=== PATIENT | male | born 1960 | race Caucasian/White ===

== ENCOUNTER 2025-03-03 08:07 | Day surgery (SDC) | payer MEDICARE, BC ==
[~2025-03-03] VITALS: Ht 188 cm; Wt 100.8 kg
[2025-03-03] VITALS (20 sets, daily range): BP systolic 109–157; BP diastolic 67–92
--- NOTE | 2025-03-03 08:43 | NUR ---
Ambulatory in Day Surgery. History, Chart, Medications and Allergies reviewed before start of procedure. Lungs clear T/O to Auscultation. Patient confirms NPO status and agrees with scheduled surgery. Pre-Op teaching done. Pt verbalizes understanding. Patient States Post-Procedure ride home has been arranged.
--- NOTE | 2025-03-03 08:47 | NUR ---
03/03/25 0847 Abigail Alston CONFIRMED AND REVIEWED H&P, MEDCICATIONS, ALLERGIES, MEDICAL HISTORY, RESPIRATORY HISTORY, VITAL SIGNS, 3-LEAD EKG, CONSENTS, AND PHYSICIAN ORDERS. PATIENT CONFIRMS NPO STATUS AND AGREES WITH SCHEDULED PROCEDURE. MONITOR INTACT WITH CONTINUOUS PULSE OXIMETRY, CAPNOGRAPHY, 3-LEAD EKG, INTERMITTENT BP. SUPPLEMENTAL O2 TO BE TITRATED THROUGHOUT PROCEDURE TO MAINTAIN O2 SATURATION ABOVE 90%. PATIENT DETERMINED TO BE ASA APPROPRIATE FOR PROPOFOL SEDATION PRIOR TO START OF PROCEDURE BY DR. LIGHT
--- NOTE | 2025-03-03 09:58 | NUR ---
Discharge instructions reviewed with patient. Patient verbalizes understanding. Copy given to patient to take home. Discharged via wheelchair to private car for ride home.
--- NOTE | 2025-03-03 09:59 | NUR ---
PT HAS NOW CONTACTED RIDE, WILL ARRIVE IN 30 MIN, PT WILL WAIT IN LOBBY AT PT ENTERANCE FOR RIDE TO ARRIVE, DISCHARGE VOLUNTEER UPDATE AND WILL HAVE SCREEN CLEANER SIGN PAPER WORK WHEN THEY ARRIVE
== END 2025-03-03 09:59 | disposition home or self-care (01) ==
LOC: ORSCMMR 08:07 → ORD 14:00 → ORSCMMR 14:00
PROVIDERS: Internal Medicine Gastroenterology
PROC: 0DBP8ZX Excision of Rectum, Via Natural or Artificial Opening Endoscopic, Diagnostic (ICD-10-PCS; principal; 2025-03-03 09:00)
DX: Z12.11 Encounter for screening for malignant neoplasm of colon (principal); K62.1 Rectal polyp; K57.30 Diverticulosis of large intestine without perforation or abscess without bleeding
CPT/HCPCS: 88305; J2704; J7120